=== PATIENT | female | born 1995 ===

== ENCOUNTER 2020-11-12 15:36 | Inpatient (IN) | payer BC ==
[~2020-11-12] VITALS: Ht 154.9 cm; Wt 76.3 kg
[2020-11-12] MEDS ORDERED: PROMETHAZINE 25 MG/ML, 1ML IM PRN (16:30)
[2020-11-12] MEDS ORDERED: CYCLOBENZAPRINE 10 MG TABLET PO SCH (16:30)
[2020-11-12] MEDS ORDERED: ONDANSETRON 2MG/ML, 2ML IVPush PRN (16:30)
[2020-11-12] MEDS: LACTATED RINGERS 1,000 ML IV SCH ×2 (16:50→19:31)
[2020-11-12 17:09] LABS: BASOPHILS % (AUTO) 0 % (0-1); EOSINOPHILS % (AUTO) 0 % (1-7); LYMPHOCYTES % (AUTO) 17 % (22-44); MEAN CORPUSCULAR HEMOGLOBIN 29.2 pg (27.0-34.8); MEAN CORPUSCULAR HGB CONC 34.3 g/dL (32.4-35.8); MEAN PLATELET VOLUME 7.6 fL (7.4-10.4); MONOCYTES % (AUTO) 5 % (2-9); NEUTROPHILS % (AUTO) 77 % (42-75); PLATELET COUNT 300 x10^3/uL (130-400); RED BLOOD COUNT 4.18 x10^6/uL (3.82-5.3); RED CELL DISTRIBUTION WIDTH 13.2 % (9.6-15.2)
[2020-11-12 17:19] LABS: ALBUMIN 2.7 g/dL (3.4-5.0); ANION GAP 9 mmol/L (5-15); CALCIUM 8.6 mg/dL (8.5-10.1); CHLORIDE 110 mmol/L (98-107)
[2020-11-12 17:22] LABS: CREATININE 0.58 mg/dL (0.55-1.02)
[2020-11-12 17:23] LABS: ALANINE AMINOTRANSFERASE 24 U/L (12-78); ALKALINE PHOSPHATASE 78 U/L (45-117); BILIRUBIN,TOTAL 0.2 mg/dL (0.2-1.0); TOTAL PROTEIN 6.4 g/dL (6.4-8.2)
[2020-11-12] MEDS: CYCLOBENZAPRINE 10 MG TABLET PO SCH ×2 (17:30→21:08)
[2020-11-12] MEDS: TAMSULOSIN 0.4 MG CAP.ER.24H PO SCH (18:52)
[2020-11-12 19:12] VITALS: BP 96/52
[2020-11-12 19:25] LABS: MICROSCOPIC INDICATED
[2020-11-12] MEDS: FENTANYL PF 100 MCG/2ML IVPush PRN (21:32)
[2020-11-13] MEDS: LACTATED RINGERS 1,000 ML IV SCH ×3 (01:37→14:27)
[2020-11-13] MEDS: FENTANYL PF 100 MCG/2ML IVPush PRN ×4 (03:18→20:16)
[2020-11-13 08:15] LABS: INTERNATIONAL NORMALIZED RATIO 0.93 (0.93-1.1)
[2020-11-13] MEDS: CYCLOBENZAPRINE 10 MG TABLET PO SCH ×3 (09:30→20:37)
[2020-11-13] MEDS: TAMSULOSIN 0.4 MG CAP.ER.24H PO SCH (16:45)
[2020-11-13 22:00] VITALS: BP 105/54
[2020-11-14] MEDS: FENTANYL PF 100 MCG/2ML IVPush PRN ×5 (00:15→23:36)
[2020-11-14] MEDS: CYCLOBENZAPRINE 10 MG TABLET PO SCH ×3 (04:49→20:54)
[2020-11-14] MEDS ORDERED: PRENATAL VIT/IRON/FA 1 EACH TABLET PO SCH (09:00)
[2020-11-14] MEDS: DOCUSATE 100 MG CAPSULE PO SCH ×2 (09:17→20:56)
[2020-11-14 09:56] VITALS: BP 104/57
[2020-11-14] MEDS ORDERED: FENTANYL PF 100 MCG/2ML ONE ×2 (10:14→11:23)
[2020-11-14] MEDS ORDERED: NALOXONE 1 MG/ML, 2ML ONE (10:15)
[2020-11-14] MEDS ORDERED: FLUMAZENIL 0.1 MG/1 ML, 5ML ONE (10:15)
[2020-11-14] MEDS ORDERED: MIDAZOLAM 1 MG/ML, 5ML ONE (10:15)
[2020-11-14] MEDS ORDERED: LIDOCAINE 1%, 10ML ONE ×2 (10:16→10:59)
[2020-11-14] MEDS ORDERED: MIDAZOLAM 1 MG/ML, 2ML ONE (11:23)
[2020-11-14] MEDS ORDERED: PREN1TAB60 PO (15:05)
[2020-11-14] MEDS: TAMSULOSIN 0.4 MG CAP.ER.24H PO SCH (16:32)
[2020-11-14] MEDS: LACTATED RINGERS 1,000 ML IV SCH (16:48)
[2020-11-14 21:00] VITALS: BP 98/56
[2020-11-15] MEDS: CYCLOBENZAPRINE 10 MG TABLET PO SCH ×2 (05:15→12:38)
[2020-11-15] MEDS: FENTANYL PF 100 MCG/2ML IVPush PRN (05:15)
[2020-11-15] MEDS: OXYcodone/APAP 5/325MG TABLET PO PRN ×2 (07:55→12:38)
[2020-11-15] MEDS ORDERED: OXYC-302 PO ×2 (12:33→12:49)
[2020-11-15] MEDS ORDERED: CYCL10TA2 PO (12:33)
[2020-11-15] MEDS ORDERED: ONDA4TAB7 PO (12:33)
[2020-11-15] MEDS ORDERED: NITR100C56 PO (12:46)
[2021-02-13] MEDS ORDERED: OXYC1TAB12 PO (09:56)
== END 2020-11-15 14:23 | disposition home or self-care (01) | DRG 832 ==
LOC: EDIP 15:36 → UNDOADMIN 15:36 → EDIP 16:10 → LDIP 18:47
PROVIDERS: ADMIT Student in an Organized Health Care Education/Training Program; ATTEND Student in an Organized Health Care Education/Training Program
PROC: 0T9030Z Drainage of Right Kidney with Drainage Device, Percutaneous Approach (ICD-10-PCS; principal; 2020-11-14)
DX: O99.891 Other specified diseases and conditions complicating pregnancy (principal); N13.2 Hydronephrosis with renal and ureteral calculous obstruction; O99.112 Other diseases of the blood and blood-forming organs and certain disorders involving the immune mechanism complicating pregnancy, second trimester; N13.30 Unspecified hydronephrosis; D72.829 Elevated white blood cell count, unspecified; Z3A.22 22 weeks gestation of pregnancy
CPT/HCPCS: 36415; 50432; J3490; 76770; 76942; 80053; 81001; 85025; 85610; 87086; 99156; 99157; G0378; J2250; J2405; J3010; C1729; J2310; J7120

== ENCOUNTER 2020-12-02 22:38 | Outpatient (CLI) | payer BC ==
[~2020-12-02 22:38] MED LIST: CYCL10TA2 PO; NITR100C56 PO; ONDA4TAB7 PO; OXYC-302 PO; PREN1TAB60 PO
[2020-12-02 23:14] LABS: MICROSCOPIC INDICATED
== END 2020-12-02 23:56 | disposition home or self-care (01) ==
LOC: LDOP 22:38
PROVIDERS: ATTEND Student in an Organized Health Care Education/Training Program
DX: O46.92 Antepartum hemorrhage, unspecified, second trimester (principal); O99.891 Other specified diseases and conditions complicating pregnancy; N13.30 Unspecified hydronephrosis; Z3A.24 24 weeks gestation of pregnancy
CPT/HCPCS: 81001; 87077; 87086; 87186; 99211; G0463

== ENCOUNTER 2020-12-19 03:36 | Observation (INO) | payer BC ==
[~2020-12-19] VITALS: Ht 152.4 cm; Wt 77.3 kg
[2020-12-19 04:07] LABS: MICROSCOPIC INDICATED
[2020-12-19] MEDS ORDERED: CEFTRIAXONE 250 MG IM ONE (05:30)
[2020-12-19] MEDS ORDERED: LIDOCAINE 1%, 10ML ONE (05:39)
[2020-12-19 05:51] LABS: BASOPHILS % (AUTO) 0 % (0-1); EOSINOPHILS % (AUTO) 1 % (1-7); LYMPHOCYTES % (AUTO) 18 % (22-44); MEAN CORPUSCULAR HGB CONC 34.7 g/dL (32.4-35.8); MEAN PLATELET VOLUME 7.3 fL (7.4-10.4); MONOCYTES % (AUTO) 6 % (2-9); NEUTROPHILS % (AUTO) 75 % (42-75); PLATELET COUNT 350 x10^3/uL (130-400); RED CELL DISTRIBUTION WIDTH 13.2 % (9.6-15.2)
[2020-12-19 05:52] LABS: MD NO
[2020-12-19 06:00] LABS: ALBUMIN 2.5 g/dL (3.4-5.0); ANION GAP 6 mmol/L (5-15); CALCIUM 8.3 mg/dL (8.5-10.1); CHLORIDE 112 mmol/L (98-107)
[2020-12-19 06:04] LABS: ALANINE AMINOTRANSFERASE 18 U/L (12-78); ALKALINE PHOSPHATASE 98 U/L (45-117); BILIRUBIN,TOTAL 0.2 mg/dL (0.2-1.0); CREATININE 0.52 mg/dL (0.55-1.02)
[2020-12-19] MEDS ORDERED: CEPH500T PO (07:39)
[2020-12-19] MEDS ORDERED: SODIUM CHLORIDE FLUSH 3ML SYRINGE IVF SCH (09:00)
== END 2020-12-19 08:00 | disposition home or self-care (01) ==
LOC: LDOP 03:36 → LDIP 05:21
PROVIDERS: ADMIT Student in an Organized Health Care Education/Training Program; ATTEND Student in an Organized Health Care Education/Training Program
DX: O23.42 Unspecified infection of urinary tract in pregnancy, second trimester (principal); O99.412 Diseases of the circulatory system complicating pregnancy, second trimester; I63.9 Cerebral infarction, unspecified; Z3A.27 27 weeks gestation of pregnancy; Z79.899 Other long term (current) drug therapy
CPT/HCPCS: 36415; 76770; 80053; 81001; 85025; 87077; 87086; 87186; 96372; 99211; G0378; J0696; G0463

== ENCOUNTER 2021-02-01 10:51 | Outpatient (CLI) | payer BC ==
[~2021-02-01 10:51] MED LIST changes: +CEPH500T PO
== END 2021-02-01 14:00 | disposition home or self-care (01) ==
LOC: LDOP 10:51
PROVIDERS: ATTEND Student in an Organized Health Care Education/Training Program
DX: O26.893 Other specified pregnancy related conditions, third trimester (principal); R10.9 Unspecified abdominal pain; Z3A.33 33 weeks gestation of pregnancy
CPT/HCPCS: 59025; 76819

== ENCOUNTER 2021-02-11 12:54 | Outpatient (CLI) | payer BC ==
[~2021-02-11] VITALS: Ht 154.9 cm; Wt 84.0 kg
[2021-02-11] MEDS ORDERED: CEPH750C9 PO (13:57)
[2021-02-11] MEDS ORDERED: CYCL5TAB PO (13:57)
[2021-02-12] MEDS ORDERED: NITR100C6 PO (11:49)
== END 2021-02-11 13:17 | disposition home or self-care (01) ==
LOC: LDOP 12:54
PROVIDERS: ATTEND Student in an Organized Health Care Education/Training Program
DX: O26.893 Other specified pregnancy related conditions, third trimester (principal); Z3A.35 35 weeks gestation of pregnancy
CPT/HCPCS: 59025

== ENCOUNTER 2021-02-11 13:28 | Inpatient (IN) | payer BC ==
[~2021-02-11] VITALS: Ht 154.9 cm; Wt 87.9 kg
--- NOTE | 2021-02-11 13:45 | NUR ---
pet feeder and assessment completed. Pt assisted into gown and placed on L side in bed to ensure vena cava return as pt is 35 weeks with large gravid abd present. R nephrostomy tube assessed with pain present described as sharp, stabbing with movement and palpation only. at bedside and call light in reach. Warm blankets provided. Awaiting MD assessment.
[2021-02-11] MEDS ORDERED: CYCL5TAB PO (13:57)
[2021-02-11] MEDS ORDERED: CEPH750C9 PO (13:57)
--- NOTE | 2021-02-11 14:02 | NUR ---
at bedside for exam.
--- NOTE | 2021-02-11 14:24 | NUR ---
Urology paged for MD, awaiting call back.
--- NOTE | 2021-02-11 15:26 | NUR ---
MD note on ED Board just updated and states he is still awaiting urology return call. Pt updated and reassessed.
--- NOTE | 2021-02-11 15:36 | NUR ---
Note vanna in EDM - 02/11/[address] cardiovascular technician just finished draw. Pt assessment completed by this RN, requesting Nicotine patch and if able to have ice chips. Requests sent to , awaiting response. Pt with call light in reach at this time.
--- NOTE | 2021-02-11 15:49 | NUR ---
IR staff taking pt to radiology at this time.
--- NOTE | 2021-02-11 16:39 | NUR ---
RN from IR via telephone report states replacement nephrostomy tube not able to be done and will need to be done with anesthesia tomorrow. States it is scheduled for 1030 tomorrow, that pt will require an IV placement and procedure consent paperwork available by 0900 tomorrow. Pt not yet in room for reassessment. Awaiting her arrival to room.
--- NOTE | 2021-02-11 16:45 | NUR ---
Pt back in room with Dr. Martinez at bedside. A/O x4 and states she is aware of need for second try tomorrow.
--- NOTE | 2021-02-11 16:51 | NUR ---
IV started with aseptic technique. Pt allowed to eat up until midnight when she must be NPO. states he will go see if there is anything good for her before I order a dinner tray.
[2021-02-11] MEDS ORDERED: morphine SULFATE 10 MG/ML, 1ML IVPush PRN (17:00)
[2021-02-11] MEDS ORDERED: ONDANSETRON 2MG/ML, 2ML IVPush PRN (17:00)
[2021-02-11] MEDS ORDERED: ACETAMINOPHEN 325 MG TABLET PO PRN (17:00)
[2021-02-11] MEDS ORDERED: ONDANSETRON ODT 4 MG PO PRN (17:00)
--- NOTE | 2021-02-11 17:24 | NUR ---
Admitting MD at bedside for exam. Awaiting Med/Surge bed assignment. Noted need for urine sample for UA.
--- NOTE | 2021-02-11 18:14 | NUR ---
Pt provided stand by assistance to restroom and back with UA sample obtained. Covid swab performed once back to room and both samples walked down to lab at this time.
[2021-02-11 18:27] LABS: MICROSCOPIC AUTO
[2021-02-11 18:39] LABS: BASOPHILS % (AUTO) 1 % (0-1); EOSINOPHILS % (AUTO) 1 % (1-7); LYMPHOCYTES % (AUTO) 20 % (22-44); MEAN CORPUSCULAR HEMOGLOBIN 25.8 pg (27.0-34.8); MEAN CORPUSCULAR HGB CONC 33.7 g/dL (32.4-35.8); MEAN PLATELET VOLUME 7.7 fL (7.4-10.4); MONOCYTES % (AUTO) 4 % (2-9); NEUTROPHILS % (AUTO) 75 % (42-75); PLATELET COUNT 364 x10^3/uL (130-400); RED BLOOD COUNT 4.47 x10^6/uL (3.82-5.3); RED CELL DISTRIBUTION WIDTH 14.6 % (9.6-15.2)
--- NOTE | 2021-02-11 18:45 | NUR ---
Report given to POPPY Olvera and care transferred.
[2021-02-11 18:49] LABS: ANION GAP 8 mmol/L (5-15); CALCIUM 8.9 mg/dL (8.5-10.1); CHLORIDE 110 mmol/L (98-107); CREATININE 0.53 mg/dL (0.55-1.02)
--- NOTE | 2021-02-11 18:55 | NUR ---
Attempted to call report but RN is not available due to shift change report in progress. Oncoming RN, May, notified. Lab called to state that repeat covid, dry test is needed. Pt notified and agrees to being swabbed a second time.
--- NOTE | 2021-02-11 19:26 | NUR ---
REPORT GIVEN TO POPPY HOFFMAN
[2021-02-11 20:26] VITALS: BP 124/84
[2021-02-11] MEDS ORDERED: CEPHALEXIN 500 MG CAPSULE PO SCH (21:00)
[2021-02-11] MEDS: LACTOBACILLUS CHEW TABLET PO SCH (21:23)
[2021-02-12 02:53] VITALS: BP 132/79
[2021-02-12 07:28] VITALS: BP 142/86
[2021-02-12] MEDS ORDERED: LACTATED RINGERS 1,000 ML IV SCH ×3 (08:00→16:00)
[2021-02-12] MEDS ORDERED: FENTANYL PF 100 MCG/2ML ONE (09:13)
[2021-02-12] MEDS ORDERED: LIDOCAINE 1%, 10ML ONE (09:50)
[2021-02-12] MEDS ORDERED: PHENYLEPHRINE 10 MG/ML ONE (09:51)
[2021-02-12] MEDS ORDERED: PROPOFOL 10 MG/ML, 20ML ONE (09:51)
[2021-02-12] MEDS ORDERED: ACETAMINOPHEN 325 MG TABLET PO PRN (11:00)
[2021-02-12] MEDS ORDERED: ONDANSETRON 2MG/ML, 2ML IVPush PRN (11:00)
[2021-02-12] MEDS ORDERED: OXYcodone 5 MG/5 ML ORAL.SOL UDC PO PRN (11:00)
[2021-02-12] MEDS ORDERED: PROMETHAZINE 25 MG/ML, 1ML IVPush PRN (11:00)
[2021-02-12] MEDS ORDERED: FENTANYL PF 100 MCG/2ML IV PRN (11:00)
[2021-02-12] MEDS ORDERED: HYDROcodone/APAP 5/325 TABLET PO PRN (11:30)
[2021-02-12] MEDS ORDERED: NITR100C6 PO (11:49)
[2021-02-12] MEDS: OXYcodone/APAP 5/325MG TABLET PO PRN ×2 (11:56→16:46)
[2021-02-12] MEDS ORDERED: OXYcodone/APAP 5/325MG TABLET PO PRN (12:00)
[2021-02-12] MEDS ORDERED: FENTANYL PF 100 MCG/2ML IVPush ONE (13:30)
[2021-02-12] MEDS ORDERED: FENTANYL PF 100 MCG/2ML IVPush PRN (15:30)
[2021-02-12] MEDS ORDERED: NITROFURANTOIN (MACROBID) 100 MG CAPSULE ONE (16:43)
[2021-02-12] MEDS: FENTANYL PF 100 MCG/2ML IVPush PRN ×2 (19:02→21:55)
[2021-02-12] MEDS: NITROFURANTOIN (MACROBID) 100 MG CAPSULE PO SCH (23:22)
[2021-02-13] MEDS: FENTANYL PF 100 MCG/2ML IVPush PRN (02:03)
[2021-02-13 06:52] LABS: CHLORIDE 111 mmol/L (98-107)
[2021-02-13 06:58] LABS: ANION GAP 7 mmol/L (5-15); CALCIUM 8.6 mg/dL (8.5-10.1); CREATININE 0.49 mg/dL (0.55-1.02)
[2021-02-13 08:15] VITALS: BP 103/59
[2021-02-13] MEDS: NITROFURANTOIN (MACROBID) 100 MG CAPSULE PO SCH (09:35)
[2021-02-13] MEDS ORDERED: OXYC1TAB14 PO (09:56)
[2021-02-13] MEDS: LACTOBACILLUS CHEW TABLET PO SCH (10:33)
[2021-02-13] MEDS ORDERED: LACTATED RINGERS 1,000 ML IV SCH (16:00)
== END 2021-02-13 10:36 | disposition home or self-care (01) | DRG 832 ==
LOC: OR 15:00 → SUATTDRO 16:51 → EDIP 17:00 → 4NE 19:36 → LDIP 02-12 11:15
PROVIDERS: ADMIT Family Medicine; ATTEND Family Medicine
PROC: 0T9030Z Drainage of Right Kidney with Drainage Device, Percutaneous Approach (ICD-10-PCS; 2021-02-12)
PROC: BT111ZZ Fluoroscopy of Right Kidney using Low Osmolar Contrast (ICD-10-PCS; 2021-02-12)
PROC: 0T25X0Z Change Drainage Device in Kidney, External Approach (ICD-10-PCS; principal; 2021-02-12 10:30)
DX: O99.891 Other specified diseases and conditions complicating pregnancy (principal); N13.1 Hydronephrosis with ureteral stricture, not elsewhere classified; Z3A.35 35 weeks gestation of pregnancy; Z87.440 Personal history of urinary (tract) infections; Z93.6 Other artificial openings of urinary tract status; B96.20 Unspecified Escherichia coli [E. coli] as the cause of diseases classified elsewhere; Z20.822 Contact with and (suspected) exposure to COVID-19; Z91.018 Allergy to other foods; G89.18 Other acute postprocedural pain
CPT/HCPCS: 36415; 50435; J3490; 59025; 80048; 81001; 85025; 87077; 87086; 87186; 87635; G0378; J2704; J3010; C1729; C1769; C1894; J2270; J2370; J7120

== ENCOUNTER 2021-03-15 00:02 | Inpatient (IN) | payer BC ==
[~2021-03-15] VITALS: Ht 153.9 cm; Wt 86.0 kg
[~2021-03-15 00:02] MED LIST changes: +CEPH750C9 PO; +CYCL5TAB PO; +NITR100C6 PO; +OXYC1TAB12 PO
[2021-03-15] MEDS ORDERED: LIDOCAINE 1%, 20ML ONE (21:28)
[2021-03-15] MEDS ORDERED: NEWBORN KIT ONE (21:28)
[2021-03-15] MEDS ORDERED: MISOPROSTOL 200 MCG TABLET ONE (21:28)
[2021-03-15] MEDS ORDERED: OXYTOCIN 30U/ 0.9% NaCL 500ML 500 ML ONE (21:28)
[2021-03-15] MEDS ORDERED: ONDANSETRON 2MG/ML, 2ML IVPush PRN (21:30)
[2021-03-15] MEDS ORDERED: PENICILLIN GK 5,000,000 UNITS in DEXTROSE 5% 100 ML IVPB ONE (21:30)
[2021-03-15] MEDS ORDERED: FENTANYL PF 100 MCG/2ML IVPush PRN (21:30)
[2021-03-15] MEDS ORDERED: SODIUM CITRATE/CITRIC ACID 30 ML UDC PO PRN (21:30)
[2021-03-15] MEDS ORDERED: METOCLOPRAMIDE 5 MG/ML, 2ML IVPush PRN (21:30)
[2021-03-15] MEDS ORDERED: TERBUTALINE 1 MG/ML, 1ML IVPush PRN (21:30)
[2021-03-15] MEDS ORDERED: OXYTOCIN 30U/ 0.9% NaCL 500ML 500 ML IV PRN (21:30)
[2021-03-15] MEDS ORDERED: FENTANYL PF 100 MCG/2ML IV PRN (21:30)
[2021-03-15] MEDS ORDERED: TERBUTALINE 1 MG/ML, 1ML SQ PRN (21:30)
[2021-03-15] MEDS ORDERED: D5%-LACTATED RINGERS 1,000 ML IV SCH (21:30)
[2021-03-15] MEDS ORDERED: LACTATED RINGERS 1,000 ML IV SCH (21:30)
[2021-03-15 21:46] LABS: BASOPHILS % (AUTO) 0 % (0-1); EOSINOPHILS % (AUTO) 2 % (1-7); LYMPHOCYTES % (AUTO) 25 % (22-44); MEAN CORPUSCULAR HEMOGLOBIN 24.2 pg (27.0-34.8); MEAN CORPUSCULAR HGB CONC 32.5 g/dL (32.4-35.8); MEAN PLATELET VOLUME 8.2 fL (7.4-10.4); MONOCYTES % (AUTO) 5 % (2-9); NEUTROPHILS % (AUTO) 67 % (42-75); PLATELET COUNT 337 x10^3/uL (130-400); RED BLOOD COUNT 4.62 x10^6/uL (3.82-5.3); RED CELL DISTRIBUTION WIDTH 16.2 % (9.6-15.2)
[2021-03-15 22:00] VITALS: BP 148/71
[2021-03-15 22:19] LABS: ALANINE AMINOTRANSFERASE 18 U/L (12-78); ALBUMIN 2.3 g/dL (3.4-5.0); ANION GAP 7 mmol/L (5-15); CALCIUM 8.7 mg/dL (8.5-10.1); CHLORIDE 106 mmol/L (98-107)
[2021-03-15 22:21] LABS: ALKALINE PHOSPHATASE 227 U/L (45-117); BILIRUBIN,TOTAL 0.3 mg/dL (0.2-1.0); TOTAL PROTEIN 6.5 g/dL (6.4-8.2)
[2021-03-15] MEDS ORDERED: FENTANYL/BUPIV./NS/PF 250 ML EPIDCONT ONE (23:49)
[2021-03-16] MEDS ORDERED: EPHEDRINE 50 MG/ML, 1ML IVPush PRN (01:00)
[2021-03-16] MEDS ORDERED: LACTATED RINGERS 1,000 ML IV SCH (01:00)
[2021-03-16] MEDS ORDERED: NALOXONE 0.4 MG/ML, 1ML IVPush PRN (01:00)
[2021-03-16] MEDS ORDERED: LACTATED RINGERS 1,000 ML IVBOLUS PRN (01:00)
[2021-03-16] MEDS ORDERED: FENTANYL/BUPIV./NS/PF 250 ML EPIDCONT SCH (01:00)
[2021-03-16] MEDS: PENICILLIN GK 2,500,000 UNITS in DEXTROSE 5% 100 ML IVPB SCH ×2 (02:30→06:59)
[2021-03-16] MEDS ORDERED: SODIUM CITRATE/CITRIC ACID 15 ML UDC ONE (10:25)
[2021-03-16] MEDS ORDERED: PENICILLIN GK 2,500,000 UNITS in DEXTROSE 5% 100 ML IVPB SCH (11:00)
[2021-03-16] MEDS ORDERED: PROMETHAZINE 25 MG/ML, 1ML IV PRN (12:00)
[2021-03-16] MEDS ORDERED: METOPROLOL 1 MG/ML, 5ML IV PRN (12:00)
[2021-03-16] MEDS ORDERED: MEPERIDINE/PF 25MG/0.5ML IVPush PRN (12:00)
[2021-03-16] MEDS ORDERED: OXYcodone 5 MG/5 ML ORAL.SOL UDC PO PRN (12:00)
[2021-03-16] MEDS ORDERED: hydrALAzine 20 MG/ML, 1ML IV PRN (12:00)
[2021-03-16] MEDS ORDERED: FENTANYL PF 100 MCG/2ML IV PRN (12:00)
[2021-03-16] MEDS ORDERED: HYDROmorphone 2 MG/ML, 1ML IVPush PRN (12:00)
[2021-03-16] MEDS ORDERED: ALBUTEROL SULFATE 2.5 MG/3 ML NPPB PRN (12:00)
[2021-03-16] MEDS ORDERED: HYDROcodone/APAP 7.5-325MG/15ML UDC PO PRN (12:00)
[2021-03-16] MEDS ORDERED: ONDANSETRON 2MG/ML, 2ML IVPush PRN (12:00)
[2021-03-16] MEDS ORDERED: LABETALOL 5MG/ML, 20ML IV PRN (12:00)
[2021-03-16] MEDS ORDERED: FENTANYL PF 100 MCG/2ML ONE ×2 (12:08→12:12)
[2021-03-16] MEDS ORDERED: ONDANSETRON 2MG/ML, 2ML ONE (12:08)
[2021-03-16] MEDS ORDERED: PROPOFOL 10 MG/ML, 20ML ONE (12:08)
[2021-03-16] MEDS ORDERED: SUCCINYLCHOLINE 20 MG/ML, 10ML ONE (12:08)
[2021-03-16] MEDS ORDERED: CEFAZOLIN 1,000 MG ONE (12:08)
[2021-03-16] MEDS ORDERED: PHENYLEPHRINE 10 MG/ML ONE (12:08)
[2021-03-16] MEDS ORDERED: KETOROLAC 30 MG/1 ML ONE (12:08)
[2021-03-16] MEDS ORDERED: EPHEDRINE 50 MG/ML, 1ML ONE (12:08)
[2021-03-16] MEDS ORDERED: OXYTOCIN 10 UNITS/ML, 1ML ONE (12:08)
[2021-03-16] MEDS ORDERED: DEXAMETHASONE 4 MG/ML, 1ML ONE (12:08)
[2021-03-16] MEDS ORDERED: HYDROmorphone 2 MG/ML, 1ML ONE (13:13)
[2021-03-16] MEDS ORDERED: ONDANSETRON 2MG/ML, 2ML IV PRN (14:00)
[2021-03-16] MEDS: OXYTOCIN 30U/ 0.9% NaCL 500ML 500 ML IV SCH (14:00)
[2021-03-16] MEDS: LACTATED RINGERS 1,000 ML IV SCH ×3 (14:00→22:00)
[2021-03-16] MEDS ORDERED: METOCLOPRAMIDE 5 MG/ML, 2ML IV PRN (14:00)
[2021-03-16] MEDS ORDERED: METHYLERGONOVINE 0.2 MG/ML IM PRN (14:00)
[2021-03-16] MEDS ORDERED: TRANEXAMIC ACID 1,000 MG in SODIUM CHLORIDE 0.9% 100 ML IVPB ONE (14:00)
[2021-03-16] MEDS ORDERED: MISOPROSTOL 200 MCG TABLET PO PRN (14:00)
[2021-03-16] MEDS ORDERED: CARBOPROST TROMETHAMINE 250 MCG/ML, 1ML IM PRN (14:00)
[2021-03-16] MEDS ORDERED: MORPHINE SULFATE 4 MG/ML, 1ML IVPush PRN (14:00)
[2021-03-16 17:10] VITALS: BP 112/67
[2021-03-16 19:00] VITALS: BP 119/70
[2021-03-16] MEDS: KETOROLAC 30 MG/1 ML IV SCH (19:57)
[2021-03-16] MEDS: OXYcodone/APAP 5/325MG TABLET PO PRN (19:57)
[2021-03-16] MEDS: DOCUSATE 100 MG CAPSULE PO PRN (19:57)
[2021-03-16] MEDS: SIMETHICONE 80 MG CHEW TAB PO PRN (19:57)
[2021-03-16 21:24] LABS: BASOPHILS % (AUTO) 0 % (0-1); EOSINOPHILS % (AUTO) 0 % (1-7); LYMPHOCYTES % (AUTO) 7 % (22-44); MEAN CORPUSCULAR HEMOGLOBIN 23.7 pg (27.0-34.8); MEAN PLATELET VOLUME 8.1 fL (7.4-10.4); MONOCYTES % (AUTO) 3 % (2-9); NEUTROPHILS % (AUTO) 90 % (42-75); PLATELET COUNT 283 x10^3/uL (130-400); RED BLOOD COUNT 4.26 x10^6/uL (3.82-5.3); RED CELL DISTRIBUTION WIDTH 15.8 % (9.6-15.2)
[2021-03-17 00:49] VITALS: BP 108/67
[2021-03-17] MEDS: KETOROLAC 30 MG/1 ML IV SCH ×4 (01:56→20:09)
[2021-03-17] MEDS: OXYcodone/APAP 5/325MG TABLET PO PRN ×3 (01:56→12:51)
[2021-03-17 04:04] VITALS: BP_SYST 106; BP_SYST 98; BP_DIAS 60; BP_DIAS 68
[2021-03-17] MEDS: LACTATED RINGERS 1,000 ML IV SCH ×6 (06:00→22:00)
[2021-03-17] MEDS: PRENATAL VIT/IRON/FA 1 EACH TABLET PO SCH (07:44)
[2021-03-17] MEDS: DOCUSATE 100 MG CAPSULE PO PRN ×2 (07:44→20:09)
[2021-03-17] MEDS: NITROFURANTOIN (MACROBID) 100 MG CAPSULE PO SCH (07:45)
[2021-03-17 08:03] VITALS: BP 104/67
[2021-03-17] MEDS: OXYTOCIN 30U/ 0.9% NaCL 500ML 500 ML IV SCH ×3 (10:00→20:00)
[2021-03-17 12:55] VITALS: BP 114/74
[2021-03-17] MEDS: OXYcodone IR 5MG TABLET PO PRN ×2 (17:30→21:40)
[2021-03-17 18:34] VITALS: BP 120/75
[2021-03-17] MEDS: SIMETHICONE 80 MG CHEW TAB PO PRN (20:09)
[2021-03-17] MEDS: ACETAMINOPHEN 325 MG TABLET PO PRN (21:40)
[2021-03-18] MEDS: ACETAMINOPHEN 325 MG TABLET PO PRN ×4 (01:55→20:46)
[2021-03-18] MEDS: KETOROLAC 30 MG/1 ML IV SCH (01:55)
[2021-03-18] MEDS: OXYcodone IR 5MG TABLET PO PRN ×4 (01:56→20:48)
[2021-03-18] MEDS ORDERED: IBUPROFEN 600 MG TABLET ONE ×2 (02:08→07:59)
[2021-03-18] MEDS: IBUPROFEN 600 MG TABLET PO PRN ×4 (02:09→20:46)
[2021-03-18] MEDS: OXYTOCIN 30U/ 0.9% NaCL 500ML 500 ML IV SCH ×2 (06:00→16:00)
[2021-03-18] MEDS: LACTATED RINGERS 1,000 ML IV SCH ×5 (06:00→22:00)
[2021-03-18 07:56] VITALS: BP 109/64
[2021-03-18] MEDS: NITROFURANTOIN (MACROBID) 100 MG CAPSULE PO SCH (08:04)
[2021-03-18] MEDS: PRENATAL VIT/IRON/FA 1 EACH TABLET PO SCH (08:04)
[2021-03-18] MEDS: DOCUSATE 100 MG CAPSULE PO PRN ×2 (08:05→20:45)
[2021-03-18 20:20] VITALS: BP 124/81
[2021-03-18] MEDS: SIMETHICONE 80 MG CHEW TAB PO PRN (20:46)
[2021-03-19] MEDS: OXYTOCIN 30U/ 0.9% NaCL 500ML 500 ML IV SCH (02:00)
[2021-03-19] MEDS: LACTATED RINGERS 1,000 ML IV SCH ×2 (02:00→06:00)
[2021-03-19] MEDS: ACETAMINOPHEN 325 MG TABLET PO PRN ×2 (03:14→09:26)
[2021-03-19] MEDS: SIMETHICONE 80 MG CHEW TAB PO PRN ×2 (03:14→09:26)
[2021-03-19] MEDS: IBUPROFEN 600 MG TABLET PO PRN ×2 (03:14→09:25)
[2021-03-19] MEDS: OXYcodone IR 5MG TABLET PO PRN ×2 (03:15→09:26)
[2021-03-19 07:05] VITALS: BP 122/85
[2021-03-19] MEDS: PRENATAL VIT/IRON/FA 1 EACH TABLET PO SCH (09:25)
[2021-03-19] MEDS: NITROFURANTOIN (MACROBID) 100 MG CAPSULE PO SCH (09:25)
[2021-03-19] MEDS: DOCUSATE 100 MG CAPSULE PO PRN (09:26)
[2021-03-19] MEDS ORDERED: IBUP-1222 PO (09:37)
[2021-03-19] MEDS ORDERED: DOCU-131 PO (09:37)
[2021-03-19] MEDS ORDERED: MEASLES,MUMPS&RUBELLA VACC/PF 0.5 ML SQ-VACC ONE ×2 (10:29→11:00)
== END 2021-03-19 10:42 | disposition home or self-care (01) | DRG 788 ==
LOC: LDIP 21:05 → 2NW 03-16 15:45
PROVIDERS: ADMIT Student in an Organized Health Care Education/Training Program; ATTEND Student in an Organized Health Care Education/Training Program
PROC: 3E033VJ Introduction of Other Hormone into Peripheral Vein, Percutaneous Approach (ICD-10-PCS; principal; 2021-03-16)
PROC: 10D00Z1 Extraction of Products of Conception, Low, Open Approach (ICD-10-PCS; 2021-03-16)
DX: O62.1 Secondary uterine inertia (principal); Z3A.39 39 weeks gestation of pregnancy; N20.0 Calculus of kidney; Z87.442 Personal history of urinary calculi; Z43.6 Encounter for attention to other artificial openings of urinary tract; Z37.0 Single live birth; O99.824 Streptococcus B carrier state complicating childbirth; O99.284 Endocrine, nutritional and metabolic diseases complicating childbirth; O99.02 Anemia complicating childbirth; D50.9 Iron deficiency anemia, unspecified; O32.8XX0 Maternal care for other malpresentation of fetus, not applicable or unspecified; O32.4XX0 Maternal care for high head at term, not applicable or unspecified; N80.1 Endometriosis of ovary; O99.892 Other specified diseases and conditions complicating childbirth; O61.0 Failed medical induction of labor
CPT/HCPCS: 36415; 80053; 85025; 86592; 86850; 86900; 87635; 90707; G0378; J0690; J1100; J1170; J1885; J2405; J2540; J2704; J3010; J0330; J2370; J2590; J2765; J7120

== ENCOUNTER 2021-04-14 07:55 | Emergency (ER) | payer BC ==
[~2021-04-14] VITALS: Ht 154.9 cm; Wt 77.5 kg
[2021-04-14 12:06] VITALS: BP 114/69
== END 2021-04-14 12:29 | disposition home or self-care (01) ==
LOC: ED 07:57
DX: N30.00 Acute cystitis without hematuria (principal); R11.2 Nausea with vomiting, unspecified; R19.7 Diarrhea, unspecified
CPT/HCPCS: 50389; 50431; 76770; 81001; 87077; 87086; 87186; 96372; 99285; C1769; J0696; Q9966